=== PATIENT | female | born 1975 ===

== ENCOUNTER 2024-03-05 13:05 | Inpatient (IN) | payer OTHER ==
[~2024-03-05] VITALS: Ht 165.1 cm; Wt 100.0 kg
[2024-03-05 14:43] LABS: BASOPHILS % (AUTO) 1.2 % (0.0-2.0); EOSINOPHILS % (AUTO) 1.2 % (1.0-6.0); HEMATOCRIT 39.5 % (36-46); HEMOGLOBIN 13.3 g/dL (12.0-16.0); LYMPHOCYTES # (AUTO) 1.8 K/uL (1.0-4.8); LYMPHOCYTES % (AUTO) 33.3 % (22.0-44.0); MEAN CORPUSCULAR HEMOGLOBIN 30.1 pg (26.0-34.0); MEAN CORPUSCULAR HGB CONC 33.8 G/dL (31.0-37.0); MEAN CORPUSCULAR VOLUME 89 fL (80-100); MONOCYTES # (AUTO) 0.4 K/uL (0.1-1.0); MONOCYTES % (AUTO) 7.8 % (2.0-9.0); NEUTROPHILS % (AUTO) 56.5 % (40.0-70.0); PLATELET COUNT (AUTO) 266 K/uL (150-450); RED BLOOD CELL COUNT(AUTO) 4.43 MIL/uL (4.00-5.20); RED CELL DISTRIBUTION WIDTH 13.4 % (11.5-14.5); WHITE BLOOD COUNT (AUTO) 5.4 K/uL (4.5-11.0)
[2024-03-05] MEDS ORDERED: ZOLPIDEM TARTRATE 5 MG TABLET PO PRN (15:30)
[2024-03-05] MEDS ORDERED: ONDANSETRON HCL 4 MG/2 ML VIAL IVP PRN (15:30)
[2024-03-05] MEDS ORDERED: MAGNESIUM HYDROXIDE SUSPENSION 30 ML UDCUP PO PRN (15:30)
[2024-03-05] MEDS ORDERED: BISACODYL 10 MG RECTAL RECTAL SUPPOSITORY PR PRN (15:30)
[2024-03-05 15:40] LABS: ANION GAP 9 mmol/L (8-16); CALCIUM, TOTAL 9.4 mg/dL (8.8-10.5); CARBON DIOXIDE 29 mmol/L (22-29); CHLORIDE 104 mmol/L (98-107); CREATININE 0.78 mg/dL (0.60-1.30); GLOMERULAR FILTR. RATE CALC > 60 mL/min (>60); GLUCOSE,RANDOM 86 mg/dL (70-110); POTASSIUM 4.5 mmol/L (3.5-5.1); SODIUM SERUM 142 mmol/L (136-145); UREA NITROGEN, BLOOD 9 mg/dL (7-18)
[2024-03-05] MEDS: ACETAMINOPHEN 325 MG TABLET PO PRN (17:04)
[2024-03-05] MEDS: HEPARIN SODIUM,PORCINE 5,000 UNITS/ML VIAL SQ SCH (17:07)
[2024-03-05 20:52] VITALS: BP 158/93; PULSE 84; RESP 16; TEMP 98.3; O2SAT 100
[2024-03-05] MEDS: DOCUSATE SODIUM 100 MG CAPSULE PO SCH (20:52)
[2024-03-06 05:18] VITALS: BP 136/87; PULSE 88; RESP 18; TEMP 98.4; O2SAT 99
[2024-03-06] MEDS: PANTOPRAZOLE SODIUM 40 MG DR TABLET PO SCH (08:04)
[2024-03-06 08:07] VITALS: BP 122/80; PULSE 91; RESP 18; TEMP 98.2; O2SAT 100
[2024-03-06] MEDS ORDERED: ONDANSETRON 4 MG TABLET PO PRN (13:00)
[2024-03-06] MEDS ORDERED: ONDANSETRON HCL 4 MG/2 ML VIAL PO PRN (15:30)
== END 2024-03-06 15:50 | DRG 392 ==
LOC: EMS 13:05 → EDH 14:54 → 6S 16:12
PROVIDERS: ADMIT Internal Medicine; ATTEND Internal Medicine
DX: K31.9 Disease of stomach and duodenum, unspecified (principal); I10 Essential (primary) hypertension; T18.9XXA Foreign body of alimentary tract, part unspecified, initial encounter; W44.8XXA Other foreign body entering into or through a natural orifice, initial encounter; Y93.89 Activity, other specified; Y92.89 Other specified places as the place of occurrence of the external cause; Y99.8 Other external cause status
CPT/HCPCS: 74176; 80048; 85025; 99285; J1644; J2405